=== PATIENT | female | born 1995 | race Caucasian/White ===

== ENCOUNTER 2023-08-18 05:53 | Inpatient (IN) | payer OTHER ==
[~2023-08-18] VITALS: Ht 170.2 cm; Wt 89.4 kg
[2023-08-18] MEDS ORDERED: MORPHINE SULFATE INJ 4 MG/ML DISP.SYRIN ONE ×2 (06:35→08:18)
[2023-08-18] MEDS ORDERED: ONDANSETRON HCL/PF 4 MG/2 ML VIAL ONE ×2 (06:35→08:18)
[2023-08-18] MEDS: IV NS 0.9% 1,000 ML BAG IV ONE (06:41)
[2023-08-18] MEDS: MORPHINE SULFATE INJ 2 MG/ML DISP.SYRIN IV ONE ×2 (06:41→08:31)
[2023-08-18] MEDS: ONDANSETRON HCL/PF 4 MG/2 ML VIAL IVP ONE ×2 (06:41→08:31)
[2023-08-18 06:49] LABS: BASOPHILS % (AUTO) 0.1 % (0.0-2.0); HEMATOCRIT 46 % (33-45); HEMOGLOBIN 15.3 g/dL (11.5-14.8); LYMPHOCYTES # (AUTO) 0.4 K/uL (0.8-4.8); LYMPHOCYTES % (AUTO) 2.3 % (20.0-44.0); MEAN CORPUSCULAR HEMOGLOBIN 29 PG (26.0-33.0); MEAN CORPUSCULAR HGB CONC 33 g/dl (31.0-36.0); MEAN CORPUSCULAR VOLUME 88 fL (82-100); MONOCYTES # (AUTO) 0.5 K/uL (0.1-1.30); MONOCYTES % (AUTO) 3.5 % (2.0-12.0); NEUTROPHILS # (AUTO) 14.1 K/uL (1.8-8.9); NEUTROPHILS % (AUTO) 94.1 % (43.0-81.0); PLATELET COUNT (AUTO) 250 K/uL (150-450); RED BLOOD CELL COUNT(AUTO) 5.19 MIL/uL (4.0-5.2); RED CELL DISTRIBUTION WIDTH 12.9 % (11.5-15.0)
[2023-08-18 07:01] LABS: CALCIUM, SERUM 9.8 mg/dL (8.5-10.1); CARBON DIOXIDE 29 mmol/L (21-32); CHLORIDE 104 mmol/L (98-107); GLUCOSE 147 mg/dL (74-106); POTASSIUM 4.7 mmol/L (3.5-5.1); SODIUM SERUM 141 mmol/L (136-145); UREA NITROGEN, BLOOD 20 mg/dL (7-18)
[2023-08-18 07:13] LABS: LIPASE > 375 U/L (16-77)
[2023-08-18 07:35] LABS: ALBUMIN 3.7 g/dL (3.4-5.0); BILIRUBIN,DIRECT 0.3 mg/dL (0.0-0.2); TOTAL PROTEIN, SERUM 6.9 g/dL (6.4-8.2)
[2023-08-18] MEDS: IV LR 1000 ML 1,000 ML IV ONE (08:30)
[2023-08-18] MEDS ORDERED: MAG HYDROX/AL HYDROX/SIMETH 30 ML UDC PO PRN (11:00)
[2023-08-18] MEDS ORDERED: Z GUARD REMEDY 4 OZ OINT TP PRN (11:00)
[2023-08-18] MEDS: IV NS 0.9% 1,000 ML IV PRN (11:29)
[2023-08-18] MEDS ORDERED: FAMO20TA8 PO (11:58)
[2023-08-18] MEDS ORDERED: IPRA21SP BNOSTRILS (11:58)
[2023-08-18] MEDS ORDERED: TRAZ-257 PO (11:58)
[2023-08-18] MEDS ORDERED: MONT10TA22 PO (11:58)
[2023-08-18] MEDS ORDERED: TRAV2.5D7 EACHEYE (11:58)
[2023-08-18] MEDS ORDERED: ALBU8.5H8 IH (11:58)
[2023-08-18] MEDS ORDERED: PROP60TA6 PO (11:58)
[2023-08-18] MEDS ORDERED: DICL100G34 TP (11:58)
[2023-08-18] MEDS ORDERED: BUPR-319 PO (11:58)
[2023-08-18] MEDS ORDERED: LATA7.5D RIGHTEYE (11:58)
[2023-08-18] MEDS ORDERED: TEST200V3 SQ (11:58)
[2023-08-18] MEDS ORDERED: BUDE10.2 IH (11:58)
[2023-08-18] MEDS ORDERED: DEXT20CA3 PO (11:58)
[2023-08-18] MEDS ORDERED: CETI-90 PO (11:58)
[2023-08-18] MEDS: ONDANSETRON HCL/PF 4 MG/2 ML VIAL IVP PRN (12:02)
[2023-08-18] MEDS: MORPHINE SULFATE INJ 2 MG/ML DISP.SYRIN IV PRN (12:15)
[2023-08-18 16:07] VITALS: BP 122/74; TEMP 97.5; O2SAT 100
[2023-08-18] MEDS: ACETAMINOPHEN 325 MG TABLET PO PRN (18:39)
[2023-08-18 20:00] VITALS: BP 127/76; TEMP 97.3; O2SAT 97
[2023-08-19 07:28] LABS: HEMATOCRIT 48 % (33-45); HEMOGLOBIN 16.4 g/dL (11.5-14.8); LYMPHOCYTES # (AUTO) 0.7 K/uL (0.8-4.8); LYMPHOCYTES % (AUTO) 3.6 % (20.0-44.0); MEAN CORPUSCULAR HEMOGLOBIN 31 PG (26.0-33.0); MEAN CORPUSCULAR HGB CONC 34 g/dl (31.0-36.0); MEAN CORPUSCULAR VOLUME 90 fL (82-100); MONOCYTES # (AUTO) 0.9 K/uL (0.1-1.30); MONOCYTES % (AUTO) 4.7 % (2.0-12.0); NEUTROPHILS # (AUTO) 17.4 K/uL (1.8-8.9); NEUTROPHILS % (AUTO) 91.7 % (43.0-81.0); PLATELET COUNT (AUTO) 251 K/uL (150-450); RED BLOOD CELL COUNT(AUTO) 5.35 MIL/uL (4.0-5.2); RED CELL DISTRIBUTION WIDTH 12.9 % (11.5-15.0)
[2023-08-19 07:30] VITALS: BP 127/81; TEMP 98.1; O2SAT 94
[2023-08-19 10:09] LABS: ALANINE AMINOTRANSFERASE 18 U/L (12-78); ALBUMIN 2.9 g/dL (3.4-5.0); ALKALINE PHOSPHATASE 72 U/L (46-116); ASPARTATE AMINOTRANSFERASE 28 U/L (15-37); BILIRUBIN,DIRECT 0.2 mg/dL (0.0-0.2); BILIRUBIN,TOTAL 0.9 mg/dL (0.2-1.0); CALCIUM, SERUM 7.7 mg/dL (8.5-10.1); CARBON DIOXIDE 24 mmol/L (21-32); CHLORIDE 101 mmol/L (98-107); GLUCOSE 105 mg/dL (74-106); PHOSPHORUS 2.7 mg/dL (2.5-4.9); POTASSIUM 4.4 mmol/L (3.5-5.1); SODIUM SERUM 133 mmol/L (136-145); TOTAL PROTEIN, SERUM 6.2 g/dL (6.4-8.2); UREA NITROGEN, BLOOD 17 mg/dL (7-18)
[2023-08-19 11:25] LABS: LIPASE > 375 U/L (16-77)
[2023-08-19] MEDS ORDERED: ALBUTEROL FS 2.5 MG/3 ML VIAL.NEB NEB PRN (13:30)
[2023-08-19] MEDS: PROPRANOLOL HCL 10 MG TABLET PO SCH (16:23)
[2023-08-19] MEDS: FAMOTIDINE (20 MG) 20 MG TABLET PO SCH (16:23)
[2023-08-19] MEDS: AMPHET PO SCH (18:00)
[2023-08-19] MEDS: D AMPHET PO SCH (18:00)
[2023-08-19] MEDS: AMPHET ASP PO SCH (18:00)
[2023-08-19 20:00] VITALS: BP 92/69; TEMP 98.2; O2SAT 96
[2023-08-19 20:10] VITALS: BP 92/69; TEMP 98.2; O2SAT 96
[2023-08-19] MEDS: TRAZODONE 50 MG TABLET PO SCH (21:20)
[2023-08-19] MEDS: MAGNESIUM HYDROXIDE 30 ML UDC PO PRN (23:28)
[2023-08-20 06:48] LABS: BASOPHILS % (AUTO) 0.1 % (0.0-2.0); HEMATOCRIT 45 % (33-45); LYMPHOCYTES # (AUTO) 0.8 K/uL (0.8-4.8); LYMPHOCYTES % (AUTO) 5.5 % (20.0-44.0); MEAN CORPUSCULAR HEMOGLOBIN 30 PG (26.0-33.0); MEAN CORPUSCULAR HGB CONC 34 g/dl (31.0-36.0); MEAN CORPUSCULAR VOLUME 89 fL (82-100); NEUTROPHILS # (AUTO) 12.9 K/uL (1.8-8.9); NEUTROPHILS % (AUTO) 87.4 % (43.0-81.0); PLATELET COUNT (AUTO) 212 K/uL (150-450); RED BLOOD CELL COUNT(AUTO) 5.03 MIL/uL (4.0-5.2); RED CELL DISTRIBUTION WIDTH 13.3 % (11.5-15.0); WHITE BLOOD COUNT (AUTO) 14.7 K/uL (4.3-11.0)
[2023-08-20 07:10] LABS: CREATININE 1.3 mg/dL (0.6-1.3); POTASSIUM 5.2 mmol/L (3.5-5.1)
[2023-08-20 07:30] VITALS: BP 105/68; TEMP 98.6; O2SAT 93
[2023-08-20] MEDS: cetrizine 10 MG TABLET PO SCH (09:30)
[2023-08-20] MEDS: MONTELUKAST SODIUM (10MG) 10 MG TABLET PO SCH (09:31)
[2023-08-20] MEDS: BUPROPION XL 150 MG TAB.ER.24 PO SCH (09:31)
[2023-08-20] MEDS: BUDESONIDE RESPULE INH 0.5 MG/2 ML AMPUL.NEB NEB SCH (12:07)
[2023-08-20] MEDS: METOCLOPRAMIDE HCL 10 MG/2 ML VIAL IM SCH (12:45)
[2023-08-20] MEDS: LEVOFLOXACIN 500 MG /D5W 100ML 500 MG in PREMIX 1 EA IV SCH (13:52)
[2023-08-20] MEDS: HYDROMORPHONE 1 MG/1 ML DISP.SYRIN IV PRN (15:49)
[2023-08-20 16:00] VITALS: BP 86/74; TEMP 97.5; O2SAT 93
[2023-08-20] MEDS ORDERED: KEY,NONCONTROL,TO KEEP IN PYXI 1 EA MC ONE (19:18)
[2023-08-20 20:00] VITALS: BP 103/57; TEMP 97.5; O2SAT 97
[2023-08-20] MEDS: DICLOFENAC TOPICAL 100 GM TUBE TP PRN (22:02)
[2023-08-21 07:20] LABS: BASOPHILS % (AUTO) 0.1 % (0.0-2.0); EOSINOPHILS % (AUTO) 0.3 % (0.0-6.0); HEMATOCRIT 41 % (33-45); HEMOGLOBIN 13.7 g/dL (11.5-14.8); LYMPHOCYTES # (AUTO) 0.7 K/uL (0.8-4.8); LYMPHOCYTES % (AUTO) 7.5 % (20.0-44.0); MEAN CORPUSCULAR HEMOGLOBIN 30 PG (26.0-33.0); MEAN CORPUSCULAR HGB CONC 34 g/dl (31.0-36.0); MEAN CORPUSCULAR VOLUME 90 fL (82-100); MONOCYTES # (AUTO) 0.7 K/uL (0.1-1.30); MONOCYTES % (AUTO) 7.4 % (2.0-12.0); NEUTROPHILS # (AUTO) 7.5 K/uL (1.8-8.9); NEUTROPHILS % (AUTO) 84.7 % (43.0-81.0); PLATELET COUNT (AUTO) 208 K/uL (150-450); RED BLOOD CELL COUNT(AUTO) 4.53 MIL/uL (4.0-5.2); WHITE BLOOD COUNT (AUTO) 8.9 K/uL (4.3-11.0)
[2023-08-21 07:35] LABS: ALBUMIN 1.9 g/dL (3.4-5.0); BILIRUBIN,DIRECT 0.3 mg/dL (0.0-0.2); BILIRUBIN,TOTAL 0.8 mg/dL (0.2-1.0); CALCIUM, SERUM 7.7 mg/dL (8.5-10.1); POTASSIUM 4.4 mmol/L (3.5-5.1); TOTAL PROTEIN, SERUM 5.9 g/dL (6.4-8.2)
[2023-08-21 08:03] VITALS: O2SAT 92
[2023-08-21 08:13] VITALS: O2SAT 95
[2023-08-21 08:25] VITALS: BP 124/66; TEMP 98.6; O2SAT 94
[2023-08-21 16:33] VITALS: BP 107/60; TEMP 98.8; O2SAT 94
[2023-08-21] MEDS: METOCLOPRAMIDE HCL 10 MG TABLET PO SCH (16:35)
[2023-08-21 20:00] VITALS: BP 109/59; TEMP 98.1; O2SAT 90
[2023-08-22 07:00] LABS: BASOPHILS % (AUTO) 0.1 % (0.0-2.0); EOSINOPHILS % (AUTO) 0.3 % (0.0-6.0); HEMATOCRIT 36 % (33-45); HEMOGLOBIN 12.2 g/dL (11.5-14.8); LYMPHOCYTES # (AUTO) 0.6 K/uL (0.8-4.8); LYMPHOCYTES % (AUTO) 5.8 % (20.0-44.0); MEAN CORPUSCULAR HEMOGLOBIN 30 PG (26.0-33.0); MEAN CORPUSCULAR HGB CONC 34 g/dl (31.0-36.0); MEAN CORPUSCULAR VOLUME 90 fL (82-100); MONOCYTES % (AUTO) 9.9 % (2.0-12.0); NEUTROPHILS # (AUTO) 8.4 K/uL (1.8-8.9); NEUTROPHILS % (AUTO) 83.9 % (43.0-81.0); PLATELET COUNT (AUTO) 268 K/uL (150-450); RED BLOOD CELL COUNT(AUTO) 4.06 MIL/uL (4.0-5.2); RED CELL DISTRIBUTION WIDTH 13.3 % (11.5-15.0)
[2023-08-22] MEDS: BISACODYL SUPP (10 MG) 10 MG/SUPP.RECT SUPP.RECT RC ONE (07:07)
[2023-08-22 07:17] LABS: CALCIUM, SERUM 8.6 mg/dL (8.5-10.1); CREATININE 0.9 mg/dL (0.6-1.3); POTASSIUM 4.6 mmol/L (3.5-5.1)
[2023-08-22 07:23] LABS: ALBUMIN 1.7 g/dL (3.4-5.0); BILIRUBIN,DIRECT 0.2 mg/dL (0.0-0.2); BILIRUBIN,TOTAL 0.5 mg/dL (0.2-1.0); TOTAL PROTEIN, SERUM 5.7 g/dL (6.4-8.2)
[2023-08-22 08:00] VITALS: BP 119/77; TEMP 98.8; O2SAT 90
[2023-08-22] MEDS: DOCUSATE SODIUM 100 MG CAPSULE PO SCH (08:32)
[2023-08-22 08:33] VITALS: BP 120/77
[2023-08-22 10:58] VITALS: O2SAT 91
[2023-08-22] MEDS: DICYCLOMINE HCL 10 MG CAPSULE PO SCH (11:02)
[2023-08-22 11:14] VITALS: O2SAT 95
[2023-08-22] MEDS ORDERED: ALPRAZOLAM 0.25 MG TABLET PO PRN (15:00)
[2023-08-22] MEDS: KEY,NONCONTROL,TO KEEP IN PYXI 1 EA MC ONE (16:18)
[2023-08-22 17:08] LABS: PREGNANCY TEST URINE QUAL NEGATIVE (NEGATIVE)
[2023-08-22] MEDS ORDERED: SENNOSIDES 8.6 MG TABLET PO SCH (22:00)
== END 2023-08-22 16:15 | disposition left against medical advice (07) | DRG 439 ==
LOC: ER 05:57 → MED 10:15
PROVIDERS: ADMIT Internal Medicine; ATTEND Internal Medicine
DX: K85.90 Acute pancreatitis without necrosis or infection, unspecified (principal); E44.0 Moderate protein-calorie malnutrition; R65.10 Systemic inflammatory response syndrome (SIRS) of non-infectious origin without acute organ dysfunction; Q79.60 Ehlers-Danlos syndrome, unspecified; K82.9 Disease of gallbladder, unspecified; E88.09 Other disorders of plasma-protein metabolism, not elsewhere classified; D89.40 Mast cell activation, unspecified; G90.A Postural orthostatic tachycardia syndrome [POTS]; F32.9 Major depressive disorder, single episode, unspecified; Z68.30 Body mass index [BMI] 30.0-30.9, adult; K59.00 Constipation, unspecified
CPT/HCPCS: 36415; 76700-TC; 80048-TC; 80076-TC; 83690-TC; 83735-TC; 84100-TC; 84478-TC; 84703-TC; 85025-TC; 94799-TC; A4216; G0378; J1170; J1956; J2270; J2405; J2765; J3490; J7030; J7120; J8597

== ENCOUNTER 2024-06-13 11:33 | Inpatient (IN) | payer OTHER ==
[~2024-06-13] VITALS: Ht 170.2 cm; Wt 51.7 kg
[~2024-06-13 11:33] MED LIST: ALBU8.5H8 IH; BUDE10.2 IH; BUPR-319 PO; CETI-90 PO; DEXT20CA3 PO; DICL100G34 TP; FAMO20TA8 PO; IPRA21SP BNOSTRILS; LATA7.5D RIGHTEYE; MONT10TA22 PO; PROP60TA6 PO; TEST200V3 SQ; TRAV2.5D7 EACHEYE; TRAZ-257 PO
[2024-06-13] MEDS: IV NS 0.9% 1,000 ML BAG IV ONE (12:00)
[2024-06-13] MEDS ORDERED: PRED10TA PO (12:26)
[2024-06-13] MEDS ORDERED: MULT-213 PO (12:26)
[2024-06-13] MEDS ORDERED: METO10TA3 PO (12:26)
[2024-06-13] MEDS ORDERED: CETI-90 PO (12:26)
[2024-06-13] MEDS ORDERED: ONDA4TAB11 PO (12:26)
[2024-06-13] MEDS ORDERED: LIPA1CAP10 PO (12:26)
[2024-06-13 12:34] LABS: BASOPHILS % (AUTO) 0.2 % (0.0-2.0); EOSINOPHILS % (AUTO) 0.1 % (0.0-6.0); HEMATOCRIT 24 % (33-45); LYMPHOCYTES # (AUTO) 1.8 K/uL (0.8-4.8); LYMPHOCYTES % (AUTO) 31.3 % (20.0-44.0); MEAN CORPUSCULAR HEMOGLOBIN 30 PG (26.0-33.0); MEAN CORPUSCULAR HGB CONC 34 g/dl (31.0-36.0); MEAN CORPUSCULAR VOLUME 88 fL (82-100); MONOCYTES # (AUTO) 0.3 K/uL (0.1-1.30); MONOCYTES % (AUTO) 5.1 % (2.0-12.0); NEUTROPHILS # (AUTO) 3.7 K/uL (1.8-8.9); NEUTROPHILS % (AUTO) 63.3 % (43.0-81.0); PLATELET COUNT (AUTO) 91 K/uL (150-450); WHITE BLOOD COUNT (AUTO) 5.9 K/uL (4.3-11.0)
[2024-06-13 12:44] LABS: ALBUMIN 2.6 g/dL (3.4-5.0); BILIRUBIN,DIRECT 0.1 mg/dL (0.0-0.2); BILIRUBIN,TOTAL 0.4 mg/dL (0.2-1.0); CALCIUM, SERUM 8.5 mg/dL (8.5-10.1); CREATININE 0.7 mg/dL (0.6-1.3); POTASSIUM 3.6 mmol/L (3.5-5.1); TOTAL PROTEIN, SERUM 4.8 g/dL (6.4-8.2)
[2024-06-13 12:45] VITALS: BP 106/59; TEMP 98.1; O2SAT 100
[2024-06-13 12:47] LABS: LACTIC ACID 1.5 mmol/L (0.4-2.0)
[2024-06-13 13:08] LABS: APPEARANCE,URINE CLEAR (CLEAR); BILIRUBIN,URINE 1+ (NEGATIVE); BLOOD, URINE NEGATIVE Ery/uL (NEGATIVE); COLOR,URINE DARK YELLOW (YELLOW); KETONES,URINE TRACE mg/dL (NEGATIVE); LEUKOCYTE ESTERASE ,URINE TRACE (NEGATIVE); NITRITE, URINE NEGATIVE (NEGATIVE); PROTEIN,URINE 1+ mg/dl (NEGATIVE); UGLUCOSE NEGATIVE (NEGATIVE)
[2024-06-13 13:09] LABS: PREGNANCY TEST URINE QUAL NEGATIVE (NEGATIVE)
[2024-06-13 13:51] LABS: BACTERIA,URINE Few /HPF (None Seen)
[2024-06-13 13:52] LABS: ADD URINE CULTURE YES; CALCIUM OXALATE CRYSTALS,UR Few /HPF (None Seen); MUCUS,URINE Few /LPF (None Seen)
[2024-06-13 13:56] LABS: LYMPHOCYTES % (MANUAL) 22 % (16-48); MONOCYTES % (MANUAL) 5 % (0-11.0); NEUTROPHILS % (MANUAL) 73 (42-76); PLATELET ESTIMATE DECREASED
[2024-06-13 13:57] LABS: ANISOCYTOSIS 1+
[2024-06-13] MEDS ORDERED: MAG HYDROX/AL HYDROX/SIMETH 30 ML UDC PO PRN (15:30)
[2024-06-13] MEDS ORDERED: Z GUARD REMEDY 4 OZ OINT TP PRN (15:30)
[2024-06-13] MEDS ORDERED: IPRATROPIUM BROMIDE 0.03 % 30 ML NASPR NS PRN (15:30)
[2024-06-13] MEDS ORDERED: ACETAMINOPHEN 325 MG TABLET PO PRN (15:30)
[2024-06-13] MEDS ORDERED: MAGNESIUM HYDROXIDE 30 ML UDC PO PRN (15:30)
[2024-06-13] MEDS ORDERED: ALBUTEROL FS 2.5 MG/3 ML VIAL.NEB NEB PRN (15:30)
[2024-06-13] MEDS ORDERED: DICLOFENAC TOPICAL 100 GM TUBE TP PRN (15:30)
[2024-06-13] MEDS ORDERED: ONDANSETRON HCL/PF 4 MG/2 ML VIAL IVP PRN (15:30)
[2024-06-13] MEDS: HYDROMORPHONE 1 MG/1 ML DISP.SYRIN IV PRN (15:52)
[2024-06-13] MEDS: ONDANSETRON 4 MG TAB.RAPDIS PO PRN (15:53)
[2024-06-13 15:56] VITALS: BP 100/57; TEMP 98.2; O2SAT 98
[2024-06-13] MEDS: IV NS 0.9% 1,000 ML IV PRN (16:19)
[2024-06-13] MEDS ORDERED: PROPRANOLOL HCL 40 MG TABLET PO SCH (17:00)
[2024-06-13] MEDS ORDERED: FAMOTIDINE (20 MG) 20 MG TABLET PO SCH (17:00)
[2024-06-13] MEDS: METOCLOPRAMIDE HCL 10 MG TABLET PO SCH (18:30)
[2024-06-13] MEDS: FAMOTIDINE (20 MG) 20 MG TABLET PO SCH (20:27)
[2024-06-13] MEDS: predniSONE 20 MG TABLET PO ONE (20:28)
[2024-06-13] MEDS: PROPRANOLOL HCL 40 MG TABLET PO SCH (20:32)
[2024-06-13 20:55] VITALS: BP 103/59; TEMP 98.4; O2SAT 100
[2024-06-13] MEDS: TRAZODONE 50 MG TABLET PO SCH (22:41)
[2024-06-13] MEDS: cetrizine 10 MG TABLET PO SCH (22:41)
[2024-06-14 04:16] VITALS: BP 94/55; TEMP 98.2; O2SAT 98
[2024-06-14 06:51] LABS: CALCIUM, SERUM 8.3 mg/dL (8.5-10.1); CREATININE 0.6 mg/dL (0.6-1.3); PHOSPHORUS 3.9 mg/dL (2.5-4.9); POTASSIUM 4.8 mmol/L (3.5-5.1)
[2024-06-14 08:27] LABS: BASOPHILS % (AUTO) 0.1 % (0.0-2.0); EOSINOPHILS % (AUTO) 0.1 % (0.0-6.0); HEMATOCRIT 22 % (33-45); HEMOGLOBIN 7.4 g/dL (11.5-14.8); LYMPHOCYTES # (AUTO) 0.4 K/uL (0.8-4.8); LYMPHOCYTES % (AUTO) 23.7 % (20.0-44.0); MEAN CORPUSCULAR HEMOGLOBIN 30 PG (26.0-33.0); MEAN CORPUSCULAR HGB CONC 33 g/dl (31.0-36.0); MEAN CORPUSCULAR VOLUME 90 fL (82-100); MONOCYTES % (AUTO) 1.8 % (2.0-12.0); NEUTROPHILS # (AUTO) 1.3 K/uL (1.8-8.9); NEUTROPHILS % (AUTO) 74.3 % (43.0-81.0); PLATELET COUNT (AUTO) 59 K/uL (150-450); RED CELL DISTRIBUTION WIDTH 15.1 % (11.5-15.0); WHITE BLOOD COUNT (AUTO) 1.8 K/uL (4.3-11.0)
[2024-06-14] MEDS ORDERED: AMPHET ASP PO SCH (09:00)
[2024-06-14] MEDS ORDERED: AMPHET PO SCH (09:00)
[2024-06-14] MEDS ORDERED: [UNRECOGNIZED DRUG - OTHER] PO SCH (09:00)
[2024-06-14] MEDS ORDERED: D AMPHET PO SCH (09:00)
[2024-06-14] MEDS ORDERED: Medication Not On Formulary EA (Budesonide/Formoterol Fumarate (Symbicort 160-4.5 Mcg In IH SCH (09:00)
[2024-06-14] MEDS: BUPROPION XL 150 MG TAB.ER.24 PO SCH (09:21)
[2024-06-14 09:22] VITALS: BP 118/60
[2024-06-14] MEDS: MONTELUKAST SODIUM (10MG) 10 MG TABLET PO SCH (09:23)
[2024-06-14] MEDS: predniSONE 20 MG TABLET PO SCH (09:23)
[2024-06-14] MEDS: cetrizine 10 MG TABLET PO SCH (09:24)
[2024-06-14] MEDS: IV NS 0.9% 1,000 ML IV PRN (09:42)
[2024-06-14 12:14] LABS: LYMPHOCYTES % (MANUAL) 10 % (16-48); NEUTROPHILS % (MANUAL) 90 (42-76); PLATELET ESTIMATE DECREASED
[2024-06-14 12:15] LABS: ANISOCYTOSIS 1+
== END 2024-06-14 17:33 | disposition home or self-care (01) | DRG 641 ==
LOC: ER 11:39 → MEDSG1 12:13
PROVIDERS: ADMIT Internal Medicine; ATTEND Internal Medicine
DX: E86.0 Dehydration (principal); K86.1 Other chronic pancreatitis; Q79.60 Ehlers-Danlos syndrome, unspecified; E44.0 Moderate protein-calorie malnutrition; Z68.1 Body mass index [BMI] 19.9 or less, adult; E88.09 Other disorders of plasma-protein metabolism, not elsewhere classified; F32.9 Major depressive disorder, single episode, unspecified; G90.A Postural orthostatic tachycardia syndrome [POTS]; D64.9 Anemia, unspecified; D89.89 Other specified disorders involving the immune mechanism, not elsewhere classified; F64.0 Transsexualism; R53.1 Weakness; D89.49 Other mast cell activation disorder; N39.0 Urinary tract infection, site not specified
CPT/HCPCS: 36415; 71045-TC; 80048-TC; 80076-TC; 81001; 83605-TC; 83690-TC; 83735-TC; 84100-TC; 84703-TC; 85025-TC; 87040-TC; 87086-TC; 93307-TC; A4223; G0378; J1171; J7030; J8597; Q0162